=== PATIENT | female | born 1970 | race Caucasian/White ===

== ENCOUNTER 2017-04-25 19:06 | Emergency (ER) | payer OTHER ==
[~2017-04-25] VITALS: Ht 162.6 cm; Wt 63.5 kg
[2017-04-25] MEDS ORDERED: ACETAMINOPHEN ES 500 MG TABLET PO ONE (19:15)
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
[2017-04-25] MEDS ORDERED: ACETAMINOPHEN ES 500 MG TABLET ONE (19:28)
--- NOTE | 2017-04-25 20:19 | NUR ---
Patient discharged to home in stable conditon. Written and verbal after care instructions given. Patient verbalizes understanding of instructions. Stressed follow up with pmd or return to ER for worsening s/s.
== END 2017-04-25 20:22 | disposition home or self-care (01) ==
LOC: ER 19:07
DX: S20.219A Contusion of unspecified front wall of thorax, initial encounter (principal); V89.2XXA Person injured in unspecified motor-vehicle accident, traffic, initial encounter; W22.12XA Striking against or struck by front passenger side automobile airbag, initial encounter; Y93.89 Activity, other specified; Y99.8 Other external cause status; Y92.89 Other specified places as the place of occurrence of the external cause
CPT/HCPCS: 71020; 93005; A4663